=== PATIENT | male | born 1980 | race Caucasian/White ===

== ENCOUNTER 2016-12-10 15:49 | Emergency (ER) | payer OTHER ==
[2016-12-10 16:03] VITALS: BP 140/92; PULSE 74; TEMP 98; BMI 36.1
[2016-12-10] MEDS ORDERED: IBUPROFEN 400 MG TABLET (FP) PO ONE ×2 (16:42→16:46)
[2016-12-10] MEDS ORDERED: diazePAM 5 MG TABLET PO ONE (16:46)
--- NOTE | 2016-12-10 16:53 | PDOC ---
History of Present Illness - General Chief Complaint: Back Pain Stated Complaint: BACK PAIN Time Seen by Provider: 12/10/16 16:28 History Source: Patient - History of Present Illness Occurred: reports: yesterday Pain Location: reports: back Method of Injury: No: fall Past History - Past Medical History Allergies/Adverse Reactions: Allergies Allergy/AdvReac Type Severity Reaction Status Date / Time Penicillins Allergy Verified 12/10/16 15:56 Home Medications: Ambulatory Orders Cyclobenzaprine HCl [Flexeril 10 mg] 10 mg PO TID PRN #9 tablet 12/10/16 Naproxen [Naprosyn -] 500 mg PO BID PRN #14 tablet 12/10/16 Tramadol HCl 50 mg PO Q6H #2 tablet MDD 200 mg 12/10/16 Hypercholesterolemia: Yes - Surgical History Appendectomy: Yes - Psycho/Social/Smoking Cessation Hx Anxiety: No Suicidal Ideation: No Smoking Status: No Smoking History: Never smoked Have you smoked in the past 12 months: No Number of Cigarettes Smoked Daily: 0 Information on smoking cessation initiated: No Hx Alcohol Use: Yes (socially) Drug/Substance Use Hx: No Substance Use Type: Alcohol Review of Systems - Review of Systems Constitutional: No: Chills, Fever ABD/GI: No: Nausea, Vomiting : No: Burning, Dysuria, Flank Pain, Hematuria *Physical Exam - Vital Signs Last Vital Signs Temp Pulse Resp BP Pulse Ox 98 F 74 18 140/92 100 12/10/16 15:56 12/10/16 15:56 12/10/16 15:56 12/10/16 15:56 12/10/16 15:56 - Physical Exam General Appearance: Yes: Appropriately Dressed, Mild Distress HEENT: positive: Normal Voice Respiratory/Chest: negative: Respiratory Distress Gastrointestinal/Abdominal: positive: Soft. negative: Tender Musculoskeletal: positive: Vertebral Tenderness (to R lumbar area, no CVAT) Extremity: positive: Normal Inspection Integumentary: positive: Dry, Warm Neurologic: positive: Fully Oriented, Alert, Normal Mood/Affect Medical Decision Making - Medical Decision Making 12/10/16 16:48 36 yo M, no sig hx, here w/ lower back pain s/p lifting a heavy bag of rice at work yesterday. States pain located to right lower area and radiates to right knee, constant and worse with movement. Took Aleve with mild improvement. No lower extremity weakness, numbness, tingling, saddle anesthesia or bowel or bladder incontinence. See exam Lower back strain in setting of heavy lifting No red flags on exam -pain control in ED and reassess 12/10/16 16:58 12/10/16 16:59 12/10/16 17:40 Patient reports some improvement in pain. Will dc with prescriptions. Patient to follow-up with PMD if pain persists *DC/Admit/Observation/Transfer Diagnosis at time of Disposition: Low back strain Qualifiers: Encounter type: initial encounter Qualified Code(s): S39.012A - Strain of muscle, fascia and tendon of lower back, initial encounter - Discharge Dispostion Disposition: HOME Condition at time of disposition: Improved - Prescriptions Prescriptions: Cyclobenzaprine HCl [Flexeril 10 mg] 10 mg PO TID PRN #9 tablet PRN Reason: Back Pain Naproxen [Naprosyn -] 500 mg PO BID PRN #14 tablet PRN Reason: Pain Tramadol HCl 50 mg PO Q6H #2 tablet MDD 200 mg - Referrals Referrals: Hamzah Walker [Primary Care Provider] - - Patient Instructions Printed Discharge Instructions: DI for Back Strain or Sprain Additional Instructions: Take medications as directed and return for worsening of symptoms
[2016-12-10] MEDS ORDERED: diazePAM 5 MG TABLET ONE (17:00)
[2016-12-10] MEDS ORDERED: traMADol HCL 50 MG TABLET PO ONE (17:44)
[2016-12-10] MEDS ORDERED: traMADol HCL 50 MG TABLET ONE (17:45)
== END 2016-12-10 17:46 | disposition home or self-care (01) ==
LOC: JERFT 15:49
DX: S39.012A Strain of muscle, fascia and tendon of lower back, initial encounter (principal); X50.0XXA Overexertion from strenuous movement or load, initial encounter; X50.9XXA Other and unspecified overexertion or strenuous movements or postures, initial encounter; Y93.89 Activity, other specified; Y92.512 Supermarket, store or market as the place of occurrence of the external cause; Y99.0 Civilian activity done for income or pay
CPT/HCPCS: 99281-25

== ENCOUNTER 2018-11-21 21:12 | Emergency (ER) | payer SELFPAY, OTHER | END 2018-11-22 01:29 | disposition home or self-care (01) | LOC: JER 11-22 01:29 ==